=== PATIENT | female | born 1965 | race Caucasian/White ===

== ENCOUNTER 2022-02-27 12:22 | Inpatient (IN) | payer MEDICARE, SELFPAY ==
[2022-02-27 13:06] LABS: Actual Bicarbonate (HCO3a) 22.6 mEq/L (22-28); Base Excess (BEa) -4.4 mEq/L (-2.0 to +3.0); CO2 Tension 49.6 mmHg (35.0-45.0); Calcium, Ionized (arterial) 1.18 mmol/L (1.12-1.30); Carboxyhemoglobin (COHb) 8.7 gm% (0.0-3.0); Hemoglobin (Hb) 11.3 g/dL (12.0-16.0); O2 Tension (PaO2), arterial 77.5 mmHg (80.0-100.0); Potassium - ABG Lab 4.7 mmol/L (3.70-5.30); Puncture Site LRA; pH, Arterial 7.28 (7.35-7.45)
[2022-02-27 14:33] LABS: #Monocytes 0.5 10x3/uL (0.0-1.1); #Neutrophils 6.5 10x3/uL (1.5-8.4); %Basophils 0.3 % (0.0-2.0); %Eosinophils 0.4 % (0.0-6.0); %Lymphocytes 6.1 % (18.0-47.0); %Monocytes 6.4 % (0.0-10.0); %Neutrophils 86.5 % (40.0-75.0); Hemoglobin 9.5 g/dL (12.0-15.5); Mean Corpuscular HGB CONC 30.5 g/dL (32.0-36.0); Mean Corpuscular Hemoglobin 29.8 pg (27.0-33.0); Mean Corpuscular Volume 97.5 fl (81.6-98.3); Mean Platelet Volume 8.9 fl (7.4-10.4); Platelet Count 403 10x3/uL (150-450); Red Blood Cell (RBC) Count 3.19 10x6/uL (3.90-5.03); White Blood Cell (WBC) Count 7.5 10x3/uL (3.5-10.5)
[2022-02-27 14:41] LABS: ALT (SGPT) 44 U/L (8-55); AST (SGOT) 101 U/L (5-34); Albumin 3.3 g/dL (3.5-5.0); Alkaline Phosphatase 188 U/L (40-110); Anion Gap 17 mmol/L (10-20); BUN (Urea Nitrogen) 31 mg/dL (9.8-20.1); Bilirubin, Total 0.5 mg/dL (0.2-1.2); Calc. Creatinine Clearance 0 mL/min (70-130); Calcium 8.3 mg/dL (7.8-10.44); Carbon Dioxide 22 mmol/L (22-29); Chloride 102 mmol/L (98-107); Globulin 2.5 g/dL (2.4-3.5); Glucose 90 mg/dL (70-105); Potassium 5.1 mmol/L (3.5-5.1); Protein, Total 5.8 g/dL (6.0-8.3); Sodium 136 mmol/L (136-145)
[2022-02-27] MEDS ORDERED: Iopamidol 370 76% 100 ML VIAL ONE (14:45)
[2022-02-27] MEDS ORDERED: Ondansetron PF 4 MG/2 ML Vial IVP PRN (17:01)
[2022-02-27] MEDS ORDERED: Senokot S 8.6-50 MG TAB PO PRN (17:01)
[2022-02-27 18:27] LABS: SARS-CoV-2 NAA Rapid Test Not Detected (NotDetected)
[2022-02-27 18:31] VITALS: BMI 25.8
[2022-02-27] MEDS: Sodium Chloride 0.9% 1,000 ML IV SCH (18:54)
[2022-02-27] MEDS: Famotidine 20 MG TAB PO SCH (21:42)
[2022-02-28 03:11] LABS: #Eosinphils 0.1 10x3/uL (0.0-0.5); #Monocytes 0.6 10x3/uL (0.0-1.1); #Neutrophils 7.5 10x3/uL (1.5-8.4); %Basophils 0.1 % (0.0-2.0); %Eosinophils 0.8 % (0.0-6.0); %Lymphocytes 5.9 % (18.0-47.0); %Monocytes 6.7 % (0.0-10.0); %Neutrophils 86.3 % (40.0-75.0); Hemoglobin 10.1 g/dL (12.0-15.5); Mean Corpuscular HGB CONC 29.1 g/dL (32.0-36.0); Mean Corpuscular Hemoglobin 29.2 pg (27.0-33.0); Mean Corpuscular Volume 100.3 fl (81.6-98.3); Mean Platelet Volume 8.5 fl (7.4-10.4); Platelet Count 400 10x3/uL (150-450); RBC Distribution Width 15.9 % (11.5-14.5); Red Blood Cell (RBC) Count 3.46 10x6/uL (3.90-5.03); White Blood Cell (WBC) Count 8.7 10x3/uL (3.5-10.5)
[2022-02-28 03:31] LABS: ALT (SGPT) 35 U/L (8-55); AST (SGOT) 55 U/L (5-34); Albumin 3.5 g/dL (3.5-5.0); Alkaline Phosphatase 186 U/L (40-110); Anion Gap 14 mmol/L (10-20); BUN (Urea Nitrogen) 19 mg/dL (9.8-20.1); Bilirubin, Total 0.5 mg/dL (0.2-1.2); Calc. Creatinine Clearance 103 mL/min (70-130); Calcium 9.1 mg/dL (7.8-10.44); Carbon Dioxide 23 mmol/L (22-29); Chloride 106 mmol/L (98-107); Globulin 3.3 g/dL (2.4-3.5); Glucose 120 mg/dL (70-105); Potassium 4.5 mmol/L (3.5-5.1); Protein, Total 6.8 g/dL (6.0-8.3); Sodium 138 mmol/L (136-145)
[2022-02-28 03:46] LABS: Anisocytosis SLIGHT = 6-15 cells (100X) (0-5/hpf); Hypochromia SLIGHT = 6-15 cells (100X) (0-5/hpf); Macrocytosis SLIGHT = 6-15 cells (100X) (0-5/hpf); Microcytosis SLIGHT = 6-15 cells (100X) (0-5/hpf); Platelet Morphology Comment Appears Adequate; Polychromasia SLIGHT = 2-3 cells (100X) (0-2/hpf); Stomatocytes SLIGHT = 2-5 cells (100X) (0-1/hpf)
[2022-02-28] MEDS ORDERED: Acetaminophen 325 MG TAB PO SCH (04:45)
[2022-02-28] MEDS ORDERED: diphenhydrAMINE 25 MG CAP PO SCH (05:00)
[2022-02-28 05:54] VITALS: TEMP 96.6
[2022-02-28] MEDS: Sodium Chloride 0.9% 1,000 ML IV SCH (08:33)
[2022-02-28] MEDS: Famotidine 20 MG TAB PO SCH (08:33)
[2022-02-28] MEDS ORDERED: Enoxaparin Sodium 40 MG/0.4 ML SYRINGE SC SCH (09:00)
[2022-02-28 10:10] VITALS: BP 160/115
[2022-02-28] MEDS ORDERED: Rosuvastatin 10 MG TAB PO SCH (11:00)
[2022-02-28] MEDS ORDERED: Furosemide 40 MG TAB PO SCH (11:00)
[2022-02-28] MEDS ORDERED: DULoxetine 30 MG CAP PO SCH ×2 (11:00→21:00)
[2022-02-28] MEDS ORDERED: Amiodarone 200 MG TAB PO SCH (11:00)
[2022-02-28] MEDS ORDERED: ACETAMINOPHEN PO SCH (13:00)
[2022-02-28] MEDS ORDERED: HYDROCODONE PO SCH (13:00)
[2022-02-28] MEDS ORDERED: [UNRECOGNIZED DRUG - OTHER] PO SCH (13:00)
[2022-02-28] MEDS ORDERED: Lorazepam 0.5 MG TAB PO SCH (15:00)
[2022-02-28] MEDS ORDERED: Gabapentin 400 MG CAP PO SCH (15:00)
[2022-02-28] MEDS ORDERED: Apixaban 5 MG TAB PO SCH (21:00)
[2022-03-01] MEDS ORDERED: Amiodarone 200 MG TAB PO SCH (09:00)
[2022-03-01] MEDS ORDERED: Furosemide 40 MG TAB PO SCH (09:00)
== END 2022-02-28 11:01 | disposition short-term general hospital (02) | DRG 193 ==
LOC: CSHERS 12:22 → CSHIMCU 18:15
PROVIDERS: ADMIT Student in an Organized Health Care Education/Training Program; ATTEND Student in an Organized Health Care Education/Training Program
DX: J18.9 Pneumonia, unspecified organism (principal); J96.01 Acute respiratory failure with hypoxia; G93.41 Metabolic encephalopathy; I42.9 Cardiomyopathy, unspecified; I48.20 Chronic atrial fibrillation, unspecified; Z20.822 Contact with and (suspected) exposure to COVID-19; I50.9 Heart failure, unspecified; E78.5 Hyperlipidemia, unspecified; E04.1 Nontoxic single thyroid nodule; F32.A Depression, unspecified; Z96.652 Presence of left artificial knee joint; I11.0 Hypertensive heart disease with heart failure; I95.9 Hypotension, unspecified; E11.9 Type 2 diabetes mellitus without complications; Z79.899 Other long term (current) drug therapy; Z79.01 Long term (current) use of anticoagulants; Z91.041 Radiographic dye allergy status; Z82.49 Family history of ischemic heart disease and other diseases of the circulatory system; Z88.8 Allergy status to other drugs, medicaments and biological substances; Z88.2 Allergy status to sulfonamides; Z91.013 Allergy to seafood
CPT/HCPCS: 36415; 36600; 71045; 71275; 80053; 82805; 83880; 84484; 85025; 87040; 93005; 94760; 96360; J1650; J7050; Q9967

== ENCOUNTER 2022-03-02 18:15 | Inpatient (IN) | payer MEDICARE, SELFPAY ==
[2022-03-02 18:55] LABS: #Eosinphils 0.1 10x3/uL (0.0-0.5); #Monocytes 0.7 10x3/uL (0.0-1.1); #Neutrophils 4.4 10x3/uL (1.5-8.4); %Basophils 0.6 % (0.0-2.0); %Eosinophils 1.9 % (0.0-6.0); %Lymphocytes 15.6 % (18.0-47.0); %Monocytes 10.8 % (0.0-10.0); %Neutrophils 70.9 % (40.0-75.0); Hemoglobin 10.1 g/dL (12.0-15.5); Mean Corpuscular HGB CONC 30.7 g/dL (32.0-36.0); Mean Corpuscular Hemoglobin 29.2 pg (27.0-33.0); Mean Corpuscular Volume 95.1 fl (81.6-98.3); Mean Platelet Volume 8.4 fl (7.4-10.4); Platelet Count 423 10x3/uL (150-450); RBC Distribution Width 15.8 % (11.5-14.5); Red Blood Cell (RBC) Count 3.46 10x6/uL (3.90-5.03); White Blood Cell (WBC) Count 6.2 10x3/uL (3.5-10.5)
[2022-03-02 19:09] LABS: ALT (SGPT) 23 U/L (8-55); AST (SGOT) 31 U/L (5-34); Acetaminophen Less than 10.0 mcg/mL (10.0-30.0); Albumin 3.8 g/dL (3.5-5.0); Alcohol Less than 10 mg/dL (Less than 10); Alkaline Phosphatase 198 U/L (40-110); Anion Gap 16 mmol/L (10-20); BUN (Urea Nitrogen) 14 mg/dL (9.8-20.1); Bilirubin, Total 0.7 mg/dL (0.2-1.2); Calc. Creatinine Clearance 0 mL/min (70-130); Calcium 9.7 mg/dL (7.8-10.44); Carbon Dioxide 27 mmol/L (22-29); Chloride 99 mmol/L (98-107); Globulin 3.6 g/dL (2.4-3.5); Glucose 133 mg/dL (70-105); Lipase 12 U/L (8-78); Magnesium 1.8 mg/dL (1.6-2.6); Potassium 3.8 mmol/L (3.5-5.1); Protein, Total 7.4 g/dL (6.0-8.3); Salicylate Less than 8.0 mg/dL (15.0-30.0); Sodium 138 mmol/L (136-145)
[2022-03-02 19:59] LABS: Actual Bicarbonate (HCO3a) 27.2 mEq/L (22-28); Base Excess (BEa) 2.3 mEq/L (-2.0 to +3.0); CO2 Tension 43.8 mmHg (35.0-45.0); Calcium, Ionized (arterial) 1.14 mmol/L (1.12-1.30); Carboxyhemoglobin (COHb) 6.2 gm% (0.0-3.0); Critical Notified Whom: HACAN; Hemoglobin (Hb) 10.2 g/dL (12.0-16.0); O2 Tension (PaO2), arterial 74.4 mmHg (80.0-100.0); Potassium - ABG Lab 3.4 mmol/L (3.70-5.30); Puncture Site RRA; pH, Arterial 7.41 (7.35-7.45)
[2022-03-02] MEDS ORDERED: cefTRIAXone\\ROCEPHIN 1 GM VIAL ONE (20:09)
[2022-03-02 20:21] LABS: SARS-CoV-2 NAA Rapid Test Not Detected (NotDetected)
[2022-03-02 21:17] LABS: Bilirubin 1+ (Negative); Blood, Urine 25 (Negative); Clarity Cloudy (Clear); Glucose, Urine (Dipstick) Normal (Negative); Ketone, Urine Negative (Negative); Leukocyte 500 (Negative); Nitrite Negative (Negative); Protein, Urine (Dipstick) 30 mg/dl (Neg-Trace); Specific Gravity, Urine 1.025 (1.002-1.036)
[2022-03-02 21:24] LABS: Amphetamine Not Detected (NotDetected); Barbiturates Screen Not Detected (NotDetected); Benzodiazepine Screen Not Detected (NotDetected); Cocaine Metabolite Screen Not Detected (NotDetected); Methadone Not Detected (NotDetected); Methamphetamine Not Detected (NotDetected); Opiate Screen Not Detected (NotDetected); Oxycodone Screen Not Detected (NotDetected); Phencyclidine (PCP) Not Detected (NotDetected); THC/Cannabinoid Screen Not Detected (NotDetected); Tricyclic Screen Detected (NotDetected)
[2022-03-02 21:27] LABS: WBC/HPF 21-50 HPF (0-3)
[2022-03-02 21:28] LABS: Bacteria/HPF 1+ HPF (None Seen); Renal Epithelial 0-3 HPF (None Seen); Transitional Epithelial 0-3 HPF (None Seen); Yeast-Budding 2+ HPF (None Seen); Yeast-Hyphae 1+ HPF (None Seen)
[2022-03-02] MEDS ORDERED: Hydrocortisone Sod Succ/PF 100 mg/2 ml Vial ONE (22:00)
[2022-03-02] MEDS ORDERED: Azithromycin 500 MG VIAL ONE (22:01)
[2022-03-02] MEDS ORDERED: methylPREDNISolone Sod Succ/PF 125 MG/2 ML VIAL ONE (22:02)
[2022-03-02] MEDS ORDERED: Acetaminophen 325 MG TAB PO PRN (22:44)
[2022-03-02] MEDS ORDERED: Apixaban 5 MG TAB PO SCH (23:45)
[2022-03-02] MEDS ORDERED: Arformoterol 15 MCG/2 ML NEB NEB SCH (23:45)
[2022-03-02] MEDS ORDERED: Albuterol Sulfate 2.5 mg/0.5 ml Neb ONE (23:56)
[2022-03-02] MEDS ORDERED: Albuterol Sulfate 2.5 mg/3 ml Neb ONE (23:56)
[2022-03-02] MEDS ORDERED: Thiamine HCl 200 MG/2 ML VIAL SLOW IVP SCH (23:59)
[2022-03-03 00:08] LABS: HIV (1/2) Antibody/Antigen Non-Reactive (NonReactive); HIV 1/2 INDEX 0.12 S/CO (<1.00)
[2022-03-03 00:18] VITALS: BMI 31.6
[2022-03-03 01:58] LABS: Legionella Urinary Ag Negative (Negative)
[2022-03-03 02:00] LABS: Strep pneumo Urine Ag NEGATIVE (NEGATIVE)
[2022-03-03] MEDS ORDERED: Melatonin 3 MG TAB PO PRN (02:13)
[2022-03-03] MEDS: Baclofen 10 MG TAB PO PRN ×2 (02:26→13:12)
[2022-03-03 04:46] LABS: %Basophils 0.2 % (0.0-2.0); %Lymphocytes 4.3 % (18.0-47.0); %Neutrophils 94.3 % (40.0-75.0); Hemoglobin 10.3 g/dL (12.0-15.5); Mean Corpuscular Hemoglobin 29.5 pg (27.0-33.0); Mean Corpuscular Volume 95.1 fl (81.6-98.3); Mean Platelet Volume 8.8 fl (7.4-10.4); Platelet Count 416 10x3/uL (150-450); RBC Distribution Width 15.5 % (11.5-14.5); Red Blood Cell (RBC) Count 3.49 10x6/uL (3.90-5.03); White Blood Cell (WBC) Count 4.2 10x3/uL (3.5-10.5)
[2022-03-03 05:13] LABS: Anion Gap 13 mmol/L (10-20); BUN (Urea Nitrogen) 13 mg/dL (9.8-20.1); Calc. Creatinine Clearance 128 mL/min (70-130); Carbon Dioxide 29 mmol/L (22-29); Chloride 104 mmol/L (98-107); Glucose 149 mg/dL (70-105); Sodium 142 mmol/L (136-145)
[2022-03-03 05:22] LABS: Thyroid Stimulating Hormone 1.2593 uIU/mL (0.35-4.94)
[2022-03-03 05:23] LABS: Syphilis Antibody Nonreactive (Nonreactive); Syphilis Antibody Index 0.05 S/CO (<1.00 Non-Reactive)
[2022-03-03] MEDS: hydrOXYzine Pamoate 25 mg Capsule PO SCH ×3 (05:46→19:35)
[2022-03-03] MEDS ORDERED: Ibuprofen 200 MG TAB PO SCH (06:00)
[2022-03-03] MEDS: Arformoterol 15 MCG/2 ML NEB NEB SCH ×2 (07:49→19:50)
[2022-03-03] MEDS: Budesonide 0.5 MG/2 ML NEB NEB SCH ×2 (07:50→19:40)
[2022-03-03] MEDS: Multivit, Therapeutic 1 TAB PO SCH (08:37)
[2022-03-03] MEDS: methylPREDNISolone Sod Succ 40 MG VIAL IVP SCH ×2 (08:37→21:03)
[2022-03-03] MEDS: Apixaban 5 MG TAB PO SCH ×2 (08:38→20:49)
[2022-03-03] MEDS: Gabapentin 400 MG CAP PO SCH ×3 (08:39→23:45)
[2022-03-03] MEDS: Thiamine 100 MG TAB PO SCH (08:42)
[2022-03-03] MEDS: Venlafaxine HCl XR 75 MG CAP PO SCH (08:42)
[2022-03-03] MEDS: Folic Acid 1 MG TAB PO SCH (08:42)
[2022-03-03] MEDS: Amiodarone 200 MG TAB PO SCH (08:43)
[2022-03-03] MEDS: DULoxetine 30 MG CAP PO SCH ×2 (08:43→20:46)
[2022-03-03] MEDS: Furosemide 40 MG TAB PO SCH (08:44)
[2022-03-03] MEDS ORDERED: DULoxetine 30 MG CAP PO SCH (09:00)
[2022-03-03] MEDS ORDERED: Furosemide 40 MG TAB PO SCH (09:00)
[2022-03-03] MEDS ORDERED: Apixaban 5 MG TAB PO SCH (09:00)
[2022-03-03] MEDS ORDERED: Amiodarone 200 MG TAB PO SCH (09:00)
[2022-03-03] MEDS ORDERED: Buprenorphine 8mg/Naloxone 2mg per 1 FILM SL PRN (09:03)
[2022-03-03] MEDS: Nicotine 21 MG PATCH TD SCH (09:10)
[2022-03-03 19:08] LABS: Bilirubin Neg (Negative); Blood, Urine Negative (Negative); Clarity Clear (Clear); Glucose, Urine (Dipstick) Normal (Negative); Ketone, Urine Negative (Negative); Leukocyte Negative (Negative); Nitrite Negative (Negative); Protein, Urine (Dipstick) Negative (Neg-Trace); Urobilinogen Normal mg/dL (Less than 2)
[2022-03-03 19:10] LABS: Urine Culture Reflex No No
[2022-03-03 19:15] LABS: Bacteria/HPF 2+ HPF (None Seen); RBC/HPF 0-3 HPF (0-3); Transitional Epithelial 0-3 HPF (None Seen); WBC/HPF 0-3 HPF (0-3)
[2022-03-03 19:16] LABS: Yeast-Budding 1+ HPF (None Seen)
[2022-03-03 19:17] LABS: Other Microscopic Description SEE COMMENTS
[2022-03-03] MEDS ORDERED: cefTRIAXone\\ROCEPHIN 1 GM in Sodium Chloride 0.9% 100 ML IVPB SCH (20:30)
[2022-03-03] MEDS ORDERED: traZODone HCl 50 MG TAB PO SCH (21:00)
[2022-03-03] MEDS ORDERED: Rosuvastatin 10 MG TAB PO SCH ×2 (21:00)
[2022-03-03] MEDS ORDERED: Azithromycin 500 MG in Sodium Chloride 0.9% 250 ML 250 ML IVPB SCH (22:00)
[2022-03-04] MEDS: hydrOXYzine Pamoate 25 mg Capsule PO SCH ×2 (00:37→05:48)
[2022-03-04] MEDS: Furosemide 40 MG TAB PO SCH (05:48)
[2022-03-04] MEDS: Arformoterol 15 MCG/2 ML NEB NEB SCH (07:06)
[2022-03-04] MEDS: Budesonide 0.5 MG/2 ML NEB NEB SCH (07:07)
[2022-03-04 08:05] VITALS: TEMP 97.9
[2022-03-04] MEDS ORDERED: Buprenorphine 8mg/Naloxone 2mg per 1 FILM SL PRN (09:00)
[2022-03-04] MEDS: Apixaban 5 MG TAB PO SCH (09:49)
[2022-03-04] MEDS: Folic Acid 1 MG TAB PO SCH (09:49)
[2022-03-04] MEDS: Gabapentin 400 MG CAP PO SCH (09:49)
[2022-03-04] MEDS: Multivit, Therapeutic 1 TAB PO SCH (09:49)
[2022-03-04] MEDS: methylPREDNISolone Sod Succ 40 MG VIAL IVP SCH (09:49)
[2022-03-04] MEDS: Amiodarone 200 MG TAB PO SCH (09:49)
[2022-03-04] MEDS: DULoxetine 30 MG CAP PO SCH (09:49)
[2022-03-04] MEDS: Thiamine 100 MG TAB PO SCH (09:50)
[2022-03-04] MEDS: Nicotine 21 MG PATCH TD SCH (09:50)
[2022-03-04] MEDS: Venlafaxine HCl XR 75 MG CAP PO SCH (09:50)
[2022-03-04 12:07] VITALS: BP 129/76
== END 2022-03-04 13:49 | DRG 193 ==
LOC: CSHERS 18:15 → CSHTELE 23:49
PROVIDERS: ADMIT Family Medicine; ATTEND Internal Medicine
DX: J18.9 Pneumonia, unspecified organism (principal); J96.01 Acute respiratory failure with hypoxia; G93.41 Metabolic encephalopathy; F11.20 Opioid dependence, uncomplicated; J44.0 Chronic obstructive pulmonary disease with (acute) lower respiratory infection; I42.9 Cardiomyopathy, unspecified; N39.0 Urinary tract infection, site not specified; I48.91 Unspecified atrial fibrillation; I11.0 Hypertensive heart disease with heart failure; I50.9 Heart failure, unspecified; F10.20 Alcohol dependence, uncomplicated; F17.210 Nicotine dependence, cigarettes, uncomplicated; F32.A Depression, unspecified; F19.10 Other psychoactive substance abuse, uncomplicated; E78.5 Hyperlipidemia, unspecified; Z20.822 Contact with and (suspected) exposure to COVID-19; Z96.643 Presence of artificial hip joint, bilateral; Z86.73 Personal history of transient ischemic attack (TIA), and cerebral infarction without residual deficits; Z88.2 Allergy status to sulfonamides; Z88.5 Allergy status to narcotic agent; Z91.041 Radiographic dye allergy status; Z91.013 Allergy to seafood; Z88.8 Allergy status to other drugs, medicaments and biological substances; Z91.018 Allergy to other foods; Z79.899 Other long term (current) drug therapy; Z79.01 Long term (current) use of anticoagulants; Z98.890 Other specified postprocedural states; Z90.710 Acquired absence of both cervix and uterus; Z98.891 History of uterine scar from previous surgery; Z98.84 Bariatric surgery status; Z82.0 Family history of epilepsy and other diseases of the nervous system; Z80.8 Family history of malignant neoplasm of other organs or systems; Z71.6 Tobacco abuse counseling; Z90.49 Acquired absence of other specified parts of digestive tract
CPT/HCPCS: 36415; 36600; 70450; 71045; 71275; 80048; 80053; 80306; 80307; 81001; 81003; 81015; 82607; 82746; 82805; 83605; 83690; 83735; 83880; 84145; 84443; 84484; 85025; 85379; 86780; 87389; 87449; 87633; 87899; 93005; 94640; 94760; 94799; 96361; 96365; 96367; 96375; J0456; J0696; J1720; J2920; J2930; J3411; J3490; J7050; J7611; J7620; J7626; Q0177